=== PATIENT | male | born 1950 | race Caucasian/White ===

== ENCOUNTER 2021-01-04 16:00 | Inpatient (IN) | payer MEDICARE ==
[~2021-01-04] VITALS: Ht 180.3 cm; Wt 86.2 kg
[2021-01-04 17:04] LABS: HEMOGLOBIN 17.7 gm/dl (14.0-17.5); RED BLOOD COUNT 5.82 M/UL (4.20-5.50); WHITE BLOOD COUNT 27.7 K/UL (4.5-11.0)
[2021-01-04 17:36] LABS: BUN/CREATININE RATIO 16 (0-10)
[2021-01-04] MEDS ORDERED: APPLE CIDER VI1 EACH PO (21:52)
[2021-01-04] MEDS ORDERED: SAW PALMETTO450 MG PO (21:53)
[2021-01-04] MEDS ORDERED: VITAMIN C 500500 MG PO (21:54)
[2021-01-04] MEDS ORDERED: VITAMIN D3 PO (21:55)
[2021-01-04] MEDS ORDERED: VITAMIN B12 SL (21:56)
[2021-01-05 10:15] LABS: WHITE BLOOD COUNT 26.7 K/UL (4.5-11.0)
[2021-01-05 10:20] LABS: HEMOGLOBIN 14.7 gm/dl (14.0-17.5); RED BLOOD COUNT 4.91 M/UL (4.20-5.50)
[2021-01-05 10:47] LABS: BUN/CREATININE RATIO 17 (0-10)
[2021-01-06 06:26] LABS: HEMOGLOBIN 13.7 gm/dl (14.0-17.5); RED BLOOD COUNT 4.66 M/UL (4.20-5.50)
[2021-01-06 06:29] LABS: BUN/CREATININE RATIO 18 (0-10)
[2021-01-06 06:29] LABS: WHITE BLOOD COUNT 18.7 K/UL (4.5-11.0)
[2021-01-06] MEDS ORDERED: HYDROCODON-ACE1 EAC2 PO (10:22)
[2021-01-06 13:03] LABS: HEMOGLOBIN 13.5 gm/dl (14.0-17.5); RED BLOOD COUNT 4.48 M/UL (4.20-5.50); WHITE BLOOD COUNT 16.1 K/UL (4.5-11.0)
[2021-01-06] MEDS ORDERED: AUGMENTIN 875-1 EACH PO (13:39)
[2021-01-06] MEDS ORDERED: FLOMAX 0.4 MG0.4 MG PO (13:39)
[2021-01-06] MEDS ORDERED: GLUCOPHAGE 500500 MG PO (14:18)
[2021-01-06] MEDS ORDERED: ACCU-CHEK1 EACH MC (14:27)
== END 2021-01-06 17:16 | disposition home or self-care (01) | DRG 854 ==
LOC: ER1 16:00 → CDU 22:00 → PROG CARE 22:00
PROVIDERS: Family Medicine; Internal Medicine; Surgery; ADMIT Internal Medicine
PROC: 0FT44ZZ Resection of Gallbladder, Percutaneous Endoscopic Approach (ICD-10-PCS; principal; 2021-01-05 13:17)
DX: A41.9 Sepsis, unspecified organism (principal); K81.0 Acute cholecystitis; E87.2 Acidosis; N40.1 Benign prostatic hyperplasia with lower urinary tract symptoms; R33.8 Other retention of urine; D72.829 Elevated white blood cell count, unspecified; E11.9 Type 2 diabetes mellitus without complications; Z79.899 Other long term (current) drug therapy; Z79.84 Long term (current) use of oral hypoglycemic drugs; Z20.822 Contact with and (suspected) exposure to COVID-19; Z82.49 Family history of ischemic heart disease and other diseases of the circulatory system; E86.0 Dehydration; Z83.3 Family history of diabetes mellitus
CPT/HCPCS: 36415; 51702; 71045; 76705; 80053; 81001; 82550; 82553; 82962; 83036; 83605; 83690; 83874; 84484; 85025; 85027; 87040; 87086; 90471; 94760; 96365; 96366; 96375; 99285; C9113; G0378; J1100; J1650; J1885; J2250; J2270; J2405; J2543; J2704; J3010; J7030; J7120; Q9967; U0002